=== PATIENT | male | born 1970 | race Caucasian/White ===

== ENCOUNTER 2019-05-19 12:43 | Inpatient (IN) | payer MEDICAID ==
[~2019-05-19] VITALS: Ht 167.6 cm; Wt 84.8 kg
[2019-05-19 13:10] VITALS: BP 143/77
--- NOTE | 2019-05-19 13:38 | NUR ---
C/O NON RADIATING LT LOWER BACK PAIN 01/23 X 2 MONTHS ACCOMPANIED BY OCCASIONAL FEVERS. PT DENIES DYSURIA, ABD PAIN, INJURY. PT IS AFEBRILE AT THIS TIME. NO OBVIOUS DEFORMITY TO L LOWER BACK. AT BEDSIDE. BED IN LOW POSITION, SIDE RAIL UP X1
--- NOTE | 2019-05-19 13:39 | NUR ---
DR. MASTERS AT BEDSIDE EVALUATING PT
[2019-05-19] MEDS ORDERED: NACL 0.9% 1,000 ML IV ONE (13:50)
[2019-05-19 14:27] LABS: APPEARANCE,URINE CLEAR (CLEAR); BILIRUBIN,URINE NEGATIVE (NEGATIVE); BLOOD, URINE NEGATIVE (NEGATIVE); COLOR,URINE YELLOW (YELLOW); LEUKOCYTE ESTERASE ,URINE TRACE (NEGATIVE); NITRITE, URINE NEGATIVE (NEGATIVE); UGLUCOSE 2+ (NEGATIVE)
[2019-05-19 14:33] LABS: HEMATOCRIT 40.4 % (36-52); HEMOGLOBIN 13.4 g/dL (12.0-18.0); MEAN CORPUSCULAR HEMOGLOBIN 29 pg (27-31); MEAN CORPUSCULAR HGB CONC 33 g/dL (33-37); MEAN CORPUSCULAR VOLUME 86.4 fL (80-94); PLATELET COUNT (AUTO) 451 K/uL (140-450); RED BLOOD CELL COUNT(AUTO) 4.68 MIL/uL (4.20-6.10); RED CELL DISTRIBUTION WIDTH 13.8 % (11.6-13.7); WHITE BLOOD COUNT (AUTO) 20.3 K/uL (4.8-10.8)
[2019-05-19 14:43] LABS: RBC,URINE 0-5 /HPF (0-5)
[2019-05-19 14:43] LABS: PROTHROMBIN TIME 10.3 secs (10.8-13.4)
[2019-05-19 14:51] LABS: LYMPHOCYTES % (MANUAL) 8 % (20-46)
[2019-05-19 14:52] LABS: ANION GAP 16.1 (8-16); CARBON DIOXIDE 25.1 mmol/L (21-32); EOSINOPHILS % (MANUAL) 1 % (0-4); MONOCYTES % (MANUAL) 3 % (5-12); POTASSIUM 4.2 mmol/L (3.5-5.1)
[2019-05-19 14:57] LABS: ALBUMIN 2.8 g/dL (3.4-5.0); THYROID STIMULATING HORMONE 1.91 uIU/mL (0.34-3.74); TOTAL BILIRUBIN 0.6 mg/dL (0.0-1.0)
[2019-05-19] MEDS ORDERED: ONDANSETRON 4 MG/2 ML VIAL IM/IVP PRN (16:00)
[2019-05-19] MEDS ORDERED: MORPHINE SULFATE 2 MG/ML SYR IVP PRN (16:00)
[2019-05-19] MEDS ORDERED: DOCUSATE SODIUM 100 MG GELCAP PO PRN (16:00)
[2019-05-19] MEDS ORDERED: LORazepam 2 MG/ML VIAL IM/IVP PRN (16:00)
[2019-05-19] MEDS ORDERED: ZOLPIDEM 5 MG TAB PO PRN (16:00)
[2019-05-19] MEDS ORDERED: HYDROcodone/APAP 5/325 MG 1 TAB TAB PO PRN (16:00)
[2019-05-19 16:31] LABS: BARBITURATE, URINE NEG. ng/ml (NEG <=200); BENZODIAZEPINE, URINE NEG. ng/mL (NEG <=200); CANNABINOID, URINE NEG. ng/mL (NEG <=50); COCAINE, URINE NEG. ng/mL (NEG <=300); OPIATE, URINE NEG. ng/mL (NEG <=2000); PHENCYCLIDINE SCREEN,URINE NEG. ng/mL (NEG <=25)
[2019-05-19 16:36] LABS: CHOL/HDL RATIO 5.9 (1-4.5); FREE T4 (FREE THYROXINE) 1.37 ng/dL (0.76-1.46); MAGNESIUM 1.8 mg/dL (1.8-2.4); PHOSPHORUS 2.3 mg/dL (2.5-4.9)
[2019-05-19] MEDS ORDERED: cefTRIAXone 1,000 MG VIAL ONE (16:47)
[2019-05-19] MEDS: ACETAMINOPHEN 325 MG TAB PO PRN (16:58)
--- NOTE | 2019-05-19 17:28 | NUR ---
Patient will be admitted to care of DR HERRERA. Admited to TELEMETRY. Will go to room 112A. Belongings list completed. Report to ROSELIA Thakur RN.
[2019-05-19 17:30] VITALS: BP 106/67
--- NOTE | 2019-05-19 17:30 | NUR ---
RECEIVED REPORT FROM EMERGENCY ROOM NURSE FOR CONTINUITY OF CARE. PT IN STABLE CONDITION. RESPIRATIONS EVEN AND UNLABORED, ROOM AIR. IV INTACT AND PATENT. SAFETY MEASURES IN PLACE. BED IN LOW POSITION. CALL LIGHT AT BEDSIDE. WILL CONTINUE TO MONITOR.
--- NOTE | 2019-05-19 18:15 | NUR ---
PT TALKING TO FAMILY AT BEDSIDE. MRSA NARES INITIATED. PT TOLERATED WELL. BED IN LOW POSITION. CALL LIGHT AT BEDSIDE. WILL CONTINUE TO MONITOR.
[2019-05-19] MEDS: NACL 0.9% 1,000 ML IV SCH (18:32)
[2019-05-19] MEDS ORDERED: DEXTROSE 50% 50 ML SYR IVP PRN (19:15)
--- NOTE | 2019-05-19 19:15 | NUR ---
GAVE REPORT TO SEAFOOD PROCESS WORKER NURSE FOR CONTINUITY OF CARE. PT IN STABLE CONDITION.
--- NOTE | 2019-05-19 19:16 | NUR ---
REPORT RECEIVED FROM AM NURSE AT BEDSIDE. PT IN STABLE CONDITION. AAOX4. INTRODUCED SELF TO PT. BOARD UPDATED. NO COMPLAINTS OF PAIN. NO SOB. AFEBRILE. PT IS AMBULATORY. PT IS [place] SPEAKING. IV SITE L AC 22G RUNNING NS@100ML/HR PATENT AND INTACT. SKIN WARM, DRY, AND INTACT WITH NO OPEN WOUNDS. BED LOCKED IN LOW POSITION. CALL [place] WITHIN REACH. SAFETY PRECAUTION IN PLACE. ALL NEEDS MET AT THIS TIME.
[2019-05-19] MEDS: metFORMIN 500 MG TAB PO SCH (19:44)
[2019-05-19] MEDS ORDERED: metFORMIN 500 MG TAB ONE (19:45)
[2019-05-19 20:00] VITALS: BP 127/80
[2019-05-19] MEDS: BLOOD GLUCOSE MONITORING 1 DEV DEV FS SCH (20:41)
[2019-05-19] MEDS: INSULIN LISPRO SLIDING SCALE 100 UNITS/ML VIAL SUBQ PRN (20:42)
--- NOTE | 2019-05-19 20:42 | NUR ---
BS 237. 4 UNITS OF HUMALOG GIVEN. PT TOLERATED WELL.
--- NOTE | 2019-05-19 23:00 | NUR ---
PT SLEEPING COMFORTABLY BUT AROUSABLE. NO S/S OF DISTRESS NOTED. WILL CONTINUE TO MONITOR.
[2019-05-20] VITALS: BP 122/73
--- NOTE | 2019-05-20 01:25 | NUR ---
PT SLEEPING COMFORTABLY BUT AROUSABLE. NO S/S OF DISTRESS NOTED. NO COMPLAINTS OF PAIN. NO SOB. AFEBRILE. WILL CONTINUE TO MONITOR.
[2019-05-20 04:00] VITALS: BP 102/62
[2019-05-20] MEDS: NACL 0.9% 1,000 ML IV SCH (04:10)
--- NOTE | 2019-05-21 07:05 | NUR ---
RECEIVED REPORT FROM NIGHT NURSE. PT IS CURRENTLY ASLEEP, NO SIGNS OF DISTRESS NOTED, RESPIRATIONS ARE EVEN AND UNLABORED ON ROOM AIR. PT HAS L AC 22G, RUNNING NORMAL SALINE AT 100 ML/HR. BED IN LOW POSITION, SAFETY MEASURES IN PLACE. CALL LIGHT WITHIN REACH.
[2019-05-21 08:00] VITALS: BP 129/79
[2019-05-21] MEDS ORDERED: guaiFENesin DM 200/20 MG-10 ML 10 ML UDC ONE (17:35)
--- NOTE | 2019-05-21 19:05 | NUR ---
RECEIVED REPORT FROM DAY SHIFT NURSE. AAOX4. AMBULATORY. DENIES PAIN OR SOB. ON ROOM AIR. DAUGHTER AT BEDSIDE. IV TO LEFT AC #22G, NS AT 100 ML/HR INFUSING WELL. DISCUSSED PLAN OF CARE,PT VERBALIZED UNDERSTANDING. CALL LIGHT WITHIN REACH.
[2019-05-21] MEDS: BLOOD GLUCOSE MONITORING 1 DEV DEV FS SCH (21:00)
[2019-05-21] MEDS: ACETAMINOPHEN 325 MG TAB PO PRN (21:58)
--- NOTE | 2019-05-21 22:00 | NUR ---
PT TEMP 101.4. TYLENOL 650 MG PO GIVEN.
--- NOTE | 2019-05-21 22:00 | NUR ---
DR. SHANNON MADE AWARE PT'S LAB RESULT ALREADY AVAILABLE.
[2019-05-21] MEDS: INSULIN LISPRO SLIDING SCALE 100 UNITS/ML VIAL SUBQ PRN (22:23)
--- NOTE | 2019-05-21 23:00 | NUR ---
PT'S TEMP 97.8. DENIES PAIN OR SOB. ALL NEEDS ATTENDED AT THIS TIME.
[2019-05-22] VITALS: BP 111/72
--- NOTE | 2019-05-22 02:15 | NUR ---
PT SLEEPING. NO S/S OF PAIN OR RESP DISTRESS. CALL LIGHT WITHIN REACH.
[2019-05-22] MEDS: NACL 0.9% 1,000 ML IV SCH ×5 (03:00→23:57)
--- NOTE | 2019-05-22 05:00 | NUR ---
PT SLEEPING BUT EASILY AROUSABLE. RESP EVEN AND UNLABORED. NO S/S OF PAIN. CALL LIGHT WITHIN REACH.
[2019-05-22] MEDS: BLOOD GLUCOSE MONITORING 1 DEV DEV FS SCH ×5 (06:15→20:56)
--- NOTE | 2019-05-22 06:30 | NUR ---
BLOOD SUGAR 150. NO INSULIN COVERAGE.
--- NOTE | 2019-05-22 07:30 | NUR ---
Received report from mine shifter nurse. Pt is in bed in stable condition. Call light in reach.
--- NOTE | 2019-05-22 07:30 | NUR ---
ENDORSED PT TO DAY SHIFT NURSE. PT IN STABLE CONDITION.
[2019-05-22 08:00] VITALS: BP 114/73
[2019-05-22 08:06] LABS: BASOPHILS # (AUTO) 0.1 K/uL (0.00-0.22); BASOPHILS % (AUTO) 0.5 % (0.0-2.0); EOSINOPHILS # (AUTO) 0.1 K/uL (0-0.4); EOSINOPHILS % (AUTO) 1.2 % (0.0-4.0); HEMATOCRIT 37.3 % (36-52); HEMOGLOBIN 12.4 g/dL (12.0-18.0); LYMPHOCYTES # (AUTO) 1.9 K/uL (2.0-11.5); LYMPHOCYTES % (AUTO) 16.1 % (20.5-51.1); MEAN CORPUSCULAR HEMOGLOBIN 28 pg (27-31); MEAN CORPUSCULAR HGB CONC 33 g/dL (33-37); MEAN CORPUSCULAR VOLUME 85.7 fL (80-94); MONOCYTES # (AUTO) 0.9 K/uL (0.8-1.0); MONOCYTES % (AUTO) 7.1 % (1.7-9.3); NEUTROPHILS % (AUTO) 75.1 % (42.2-75.2); PLATELET COUNT (AUTO) 518 K/uL (140-450); RED BLOOD CELL COUNT(AUTO) 4.35 MIL/uL (4.20-6.10); RED CELL DISTRIBUTION WIDTH 13.7 % (11.6-13.7)
[2019-05-22] MEDS: metFORMIN 500 MG TAB PO SCH (08:27)
[2019-05-22] MEDS: CYCLOBENZAPRINE 10 MG TAB PO SCH ×4 (08:27→17:10)
[2019-05-22 08:54] LABS: ANION GAP 13.8 (8-16); CARBON DIOXIDE 24.9 mmol/L (21-32); CREATININE 0.9 mg/dL (0.7-1.3); POTASSIUM 3.7 mmol/L (3.5-5.1)
[2019-05-22 09:00] LABS: MAGNESIUM 1.8 mg/dL (1.8-2.4); PHOSPHORUS 3.5 mg/dL (2.5-4.9)
--- NOTE | 2019-05-22 10:00 | NUR ---
Pt is resting in bed in stable condition. Call light in reach.
[2019-05-22] MEDS: INSULIN LISPRO SLIDING SCALE 100 UNITS/ML VIAL SUBQ PRN ×2 (11:29→20:58)
--- NOTE | 2019-05-22 13:00 | NUR ---
Pt is resting in bed in stable condition. Family by bedside. Call light in reach.
[2019-05-22 16:00] VITALS: BP 143/96
--- NOTE | 2019-05-22 17:00 | NUR ---
Pt is resting in bed in stable condition. Family by bedside. Call light in reach.
[2019-05-22] MEDS: PIPERACILLIN/TAZOBACTAM 3.375 GM in DEXTROSE 5% 50 ML IV SCH ×2 (17:11→23:53)
[2019-05-22 18:52] LABS: ANION GAP 13.5 (8-16); CARBON DIOXIDE 24.3 mmol/L (21-32); POTASSIUM 3.8 mmol/L (3.5-5.1)
[2019-05-22 18:53] LABS: MAGNESIUM 2.7 mg/dL (1.8-2.4); PHOSPHORUS 1.7 mg/dL (2.5-4.9)
--- NOTE | 2019-05-22 19:30 | NUR ---
Shift report given to metal checker nurse.Pt is resting in bed in stable condition. Family by bedside. Call light in reach.
--- NOTE | 2019-05-22 19:32 | NUR ---
RECEIVED PT IN STABLE CONDITION FROM AM NURSE FOR CONTINUITY OF CARE. AWAKE,ALERT AND ORIENTED X4. MED SURG PT. WITH FAMILY MEMBERS AT BEDSIDE. AMBULATORY . NO C/O DISCOMFORT NOR PAIN NOTED. HAS IVF INFUSING WELL ON THE LT AC G#20. PLAN OF CARE DISCUSSED AND VERBALIZED UNDERSTANDING. BED ON LOW POSITION. CALL LIGHT PLACED WITHIN EASY REACH. WILL CONTINUE TO MONITOR.
--- NOTE | 2019-05-22 20:58 | NUR ---
BLOOD SUGAR WAS CHECKED RESULT 190. INSULIN HUMALOG 2 UNITS SUBQ GIVEN . SNACK PROVIDED. WILL CONTINUE TO MONITOR.
--- NOTE | 2019-05-22 21:00 | NUR ---
MADE ROUNDS.. PT'S FAMILY MEMBERS STILL INSIDE ROOM. PT NO C/O ANY PAIN NOTED.
--- NOTE | 2019-05-22 23:00 | NUR ---
MADE ROUNDS. PT ASLEEP. NO S/S FO ANY DISCOMFORT NOTED.
[2019-05-22 23:52] VITALS: BP 140/79
[2019-05-22] MEDS: ACETAMINOPHEN 325 MG TAB PO PRN (23:56)
--- NOTE | 2019-05-23 02:00 | NUR ---
PT AWAKE. PERSPIRING, TEMP RECHECKED 98.4 AND BLOOD SUGAR ALSO CHECKED 179. WILL CONTINUE TO MONITOR.
[2019-05-23] MEDS: NACL 0.9% 1,000 ML IV SCH ×2 (02:16→10:09)
--- NOTE | 2019-05-23 04:00 | NUR ---
PT ASLEEP. NO S/S OF ANY PAIN NOR DISCOMFORT NOTED. WILL CONTINUE TO MONITOR.
[2019-05-23] MEDS: PIPERACILLIN/TAZOBACTAM 3.375 GM in DEXTROSE 5% 50 ML IV SCH ×2 (05:29→13:36)
[2019-05-23] MEDS: BLOOD GLUCOSE MONITORING 1 DEV DEV FS SCH ×2 (06:10→12:04)
--- NOTE | 2019-05-23 06:10 | NUR ---
BLOOD SUGAR WAS CHECKED THIS AM RESULT 139. NO INSULIN COVERAGE NEEDED.
--- NOTE | 2019-05-23 07:18 | NUR ---
ENDORSED PT IN STABLE CONDITION TO AM NURSE FOR CONTINUITY OF CARE.
--- NOTE | 2019-05-23 07:29 | NUR ---
Shift report received from ball rolling machine operator nurse. Pt is in bed in stable condition. Call light in reach.
[2019-05-23 08:00] VITALS: BP 122/83
[2019-05-23 09:41] LABS: BASOPHILS # (AUTO) 0.1 K/uL (0.00-0.22); BASOPHILS % (AUTO) 0.8 % (0.0-2.0); EOSINOPHILS # (AUTO) 0.2 K/uL (0-0.4); EOSINOPHILS % (AUTO) 1.6 % (0.0-4.0); HEMATOCRIT 37.9 % (36-52); HEMOGLOBIN 12.6 g/dL (12.0-18.0); MEAN CORPUSCULAR HEMOGLOBIN 29 pg (27-31); MEAN CORPUSCULAR HGB CONC 33 g/dL (33-37); MEAN CORPUSCULAR VOLUME 86.8 fL (80-94); MONOCYTES # (AUTO) 0.7 K/uL (0.8-1.0); MONOCYTES % (AUTO) 7.7 % (1.7-9.3); NEUTROPHILS # (AUTO) 6.6 K/uL (1.8-7.7); NEUTROPHILS % (AUTO) 68.9 % (42.2-75.2); PLATELET COUNT (AUTO) 548 K/uL (140-450); RED BLOOD CELL COUNT(AUTO) 4.37 MIL/uL (4.20-6.10); RED CELL DISTRIBUTION WIDTH 13.6 % (11.6-13.7); WHITE BLOOD COUNT (AUTO) 9.6 K/uL (4.8-10.8)
--- NOTE | 2019-05-23 10:00 | NUR ---
Pt is in bed in stable condition. Call light in reach.
[2019-05-23 10:08] LABS: MAGNESIUM 1.9 mg/dL (1.8-2.4); PHOSPHORUS 4.1 mg/dL (2.5-4.9)
[2019-05-23] MEDS: CYCLOBENZAPRINE 10 MG TAB PO SCH ×2 (10:09→13:35)
[2019-05-23] MEDS: metFORMIN 500 MG TAB PO SCH (10:09)
[2019-05-23 10:25] LABS: ANION GAP 16.1 (8-16); CARBON DIOXIDE 23.4 mmol/L (21-32); POTASSIUM 3.5 mmol/L (3.5-5.1)
[2019-05-23] MEDS: INSULIN LISPRO SLIDING SCALE 100 UNITS/ML VIAL SUBQ PRN (12:09)
--- NOTE | 2019-05-23 13:00 | NUR ---
Pt is in bed in stable condition. Call light in reach.
[2019-05-23] MEDS ORDERED: CIPR500T4 PO (14:46)
--- NOTE | 2019-05-23 15:00 | NUR ---
Pt is in bed in stable condition. Family be bedside. Call light in reach.
--- NOTE | 2019-05-23 17:00 | NUR ---
Pt was discharge today. Pt's discharge instructions given to patient. Pt's belonging with patient. Pt skin intact upon discharge. Pt's IV removed. Catheter intact. Pt was alert upon discharge. Pt walked with steady gait. Pt's vital signs within normal levels. Pt will follow up with PCP upon discharge.
[2019-05-23 20:46] LABS: WHITE BLOOD COUNT (AUTO) 16.8 K/uL (4.8-10.8)
[2019-05-23 20:47] LABS: HEMATOCRIT 36.7 % (36-52); HEMOGLOBIN 12.1 g/dL (12.0-18.0); MEAN CORPUSCULAR HEMOGLOBIN 28 pg (27-31); MEAN CORPUSCULAR HGB CONC 33 g/dL (33-37); MEAN CORPUSCULAR VOLUME 85.4 fL (80-94); PLATELET COUNT (AUTO) 482 K/uL (140-450); RED CELL DISTRIBUTION WIDTH 13.4 % (11.6-13.7)
[2019-05-23 20:49] LABS: BASOPHILS # (AUTO) 0.2 K/uL (0.00-0.22)
[2019-05-23 20:54] LABS: LYMPHOCYTES % (MANUAL) 16 % (20-46); MONOCYTES % (MANUAL) 6 % (5-12)
== END 2019-05-23 17:00 | disposition home or self-care (01) | DRG 720 ==
LOC: MED 12:43 → MTU 16:00
PROVIDERS: ADMIT Family Medicine; ATTEND Family Medicine
DX: A41.59 Other Gram-negative sepsis (principal); E43 Unspecified severe protein-calorie malnutrition; K76.0 Fatty (change of) liver, not elsewhere classified; N39.0 Urinary tract infection, site not specified; E11.9 Type 2 diabetes mellitus without complications; M54.5 Low back pain; R63.4 Abnormal weight loss; Z68.30 Body mass index [BMI] 30.0-30.9, adult; Z79.899 Other long term (current) drug therapy
CPT/HCPCS: 36415; 71045; 72110; 74018; 76700; 80048; 80053; 80305; 81001; 82150; 82550; 82948; 83036; 83605; 83690; 83735; 83880; 84100; 84439; 84443; 84484; 85025; 85610; 85730; 87040; 87081; 87086; 87186; 93005; 96361; 96374; 96375; 96376; 99291; J0696; J2543; J7030; J7060; Q0092